=== PATIENT | female | born 1940 | race Caucasian/White ===

== ENCOUNTER 2017-09-20 10:35 | Emergency (ER) | payer OTHER ==
[~2017-09-20] VITALS: Ht 157.5 cm; Wt 52.7 kg
[~2017-09-20 10:35] MED LIST: ACIPHEX20 MG PO; ANASTROZOLE1 MG PO; ASPIR-TRIN325 M1 PO; ATORVASTATIN CA10 MG PO; Arimidex PO; CALCIUM 500 MG1 EACH PO; CALCIUM500 M4 PO; CEFDINIR300 MG PO; FEOSOL325 MG PO; Feosol PO; Lipitor PO; MULTIVITAMIN1 EAC2 PO; NEXIUM 24HR20 MG PO; NEXIUM40 MG PO; NORTRIPTYLINE H10 MG PO; PROLIA60 MG/1 ML SC; PROVENTIL,2.5 MG/3 M IH; SENOKOT S,PE1 TABLET PO; SPIRIVA1 INHALATI IH; VENTOLIN HFA18 GM IH; VESICARE5 MG PO; VITAMIN D31000 UNIT PO; Vicodin,Lortab 5/500 PO; Vitamin D PO; ZOMETA4 MG/5 ML IV
[2017-09-20 11:22] LABS: HEMATOCRIT 35.5 % (36.0-46.0); HEMOGLOBIN 12.4 G/DL (11.9-15.5); MCH 33.6 PG (29.0-34.0); MCHC 34.9 G/DL (30.0-36.0); MCV 96.2 FL (83-99); PLATELET COUNT 173 K/uL (156-360); RBC DIS.WIDTH-CV 12.6 % (11.8-14.6); RBC DIS.WIDTH-SD 44.9 % (39-53); RED BLOOD COUNT 3.69 M/uL (3.80-5.20)
[2017-09-20 11:31] LABS: ALBUMIN 3.9 g/dL (3.2-4.8); CHLORIDE 106 mEq/L (99-109); SODIUM 142 mEq/L (136-147)
[2017-09-20 11:34] LABS: GLUCOSE 92 mg/dL (70-99); TOTAL PROTEIN 6.7 g/dL (6.4-8.3)
[2017-09-20 11:35] LABS: TOTAL BILIRUBIN 0.6 mg/dL (0.0-1.0)
[2017-09-20 11:37] LABS: ALKALINE PHOSPHATASE 77 IU/L (3-129); CREATININE 0.7 mg/dL (0.6-1.3); GFR ESTIMATE (CALCULATED) > 59 mL/min/
[2017-09-20 11:38] LABS: UREA NITROGEN (BUN) 10 mg/dL (9-23)
[2017-09-20 11:39] LABS: AST (GOT) 17 IU/L (2-34)
[2017-09-20 11:40] LABS: ALT (GPT) 12 IU/L (3-49)
[2017-09-20 11:48] LABS: APPEARANCE CLEAR ((CLEAR)); BILIRUBIN NEGATIVE; BLOOD SMALL; COLOR YELLOW ((YELLOW)); GLUCOSE (STRIP) NEGATIVE; KETONES NEGATIVE; LEUKOCYTES SMALL; NITRITE NEGATIVE; PROTEIN (STRIP) NEGATIVE; UROBILINOGEN 0.2 MG/DL (0.2-1.0)
[2017-09-20 12:15] LABS: BACTERIA NONE SEEN /HPF; EPITHELIAL CELLS 1+ /HPF; MUCUS TRACE /LPF; RED BLOOD CELLS 0-5 /HPF (0-5); UCUL ADDED? NO; WHITE BLOOD CELLS 0-5 /HPF (0-5)
[2017-09-20] MEDS ORDERED: BENTYL10 MG PO (14:15)
[2017-09-20] MEDS ORDERED: IMODIUM A-D2 M2 PO (14:15)
[2017-09-20 15:04] VITALS: BP 133/75
== END 2017-09-20 15:05 | disposition home or self-care (01) ==
LOC: EME 10:35
DX: R10.30 Lower abdominal pain, unspecified (principal); R19.7 Diarrhea, unspecified; J44.9 Chronic obstructive pulmonary disease, unspecified; E78.5 Hyperlipidemia, unspecified; K21.9 Gastro-esophageal reflux disease without esophagitis; Z85.3 Personal history of malignant neoplasm of breast; Z88.6 Allergy status to analgesic agent; Z88.5 Allergy status to narcotic agent
CPT/HCPCS: 74177; 80053; 81003; 85027; 99281; 99285; J7120

== ENCOUNTER → 2018-01-12 | Outpatient (CLI) | payer OTHER ==
[~2018-01-12] MED LIST changes: +BENTYL10 MG PO; +IMODIUM A-D2 M2 PO
== END | disposition home or self-care (01) ==
DX: R13.12 Dysphagia, oropharyngeal phase (principal); Z87.19 Personal history of other diseases of the digestive system; Z85.3 Personal history of malignant neoplasm of breast; Z98.890 Other specified postprocedural states
CPT/HCPCS: 92611 GN; G8996 GN; G8997 GN; G8998 GN

== ENCOUNTER → 2018-01-27 | Outpatient (CLI) | payer OTHER ==
[~2018-01-27] VITALS: Ht 158.8 cm; Wt 55.8 kg
[~2018-01-27] MED LIST changes: +CELEXA10 MG PO; +CYANOCOBALAM1000 MCG PO; +FLONASE SENSIM5.9 ML BOTH NARES; +K-DUR10 MEQ PO; +LO-DOSE ASPIRIN81 M1 PO; -NEXIUM 24HR20 MG PO; +NOLVADEX20 MG PO; +PULMICORT FLE180 MCG IH; +VITAMIN D2000 UNIT PO
== END | disposition home or self-care (01) ==
LOC: AMB 12:06
DX: K29.70 Gastritis, unspecified, without bleeding (principal); K44.9 Diaphragmatic hernia without obstruction or gangrene; K52.9 Noninfective gastroenteritis and colitis, unspecified; Z85.3 Personal history of malignant neoplasm of breast; Z79.811 Long term (current) use of aromatase inhibitors; J44.9 Chronic obstructive pulmonary disease, unspecified; E78.5 Hyperlipidemia, unspecified; Z98.1 Arthrodesis status; Z80.1 Family history of malignant neoplasm of trachea, bronchus and lung; Z80.0 Family history of malignant neoplasm of digestive organs; Z80.52 Family history of malignant neoplasm of bladder
CPT/HCPCS: 88305; 88342 TC